=== PATIENT | female | born 1970 | race Two or more races ===

== ENCOUNTER 2019-08-29 00:34 | Emergency (ER) | payer BC ==
[2019-08-29 00:54] VITALS: TEMP 98.1; BMI 25.4
--- NOTE | 2019-08-29 00:57 | PDOC ---
History of Present Illness - History of Present Illness Initial Comments: 08/29/19 01:31 49F with pmh of migraines, presents to the ED with episode of 20min nosebleed from b/l nostrils, worse on the left one. It started when she was at home brushing her teeth, blew her nose under the faucet and the bleeding started.. Unable to control it, until she got to our triage and it got packed. Not on any medication, anticoagulants. Had much milder episodes of nosebleed in the past, rare in frequency. <Vinay Oleary - Last Filed: 08/29/19 02:05> <Rashida Garcia - Last Filed: 08/29/19 02:16> - General Chief Complaint: Nasal Bleeding Stated Complaint: NOSEBLEED Time Seen by Provider: 08/29/19 00:49 Past History - Past Medical History Anemia: No Asthma: No Cancer: No Cardiac Disorders: No COPD: No Diabetes: No HTN: No Seizures: No Thyroid Disease: No - Reproductive History (#): 3 Para: 1 - Psycho Social/Smoking Cessation Hx Smoking Status: No Smoking History: Never smoked Have you smoked in the past 12 months: No Number of Cigarettes Smoked Daily: 0 Hx Alcohol Use: No Drug/Substance Use Hx: No Substance Use Type: None Hx Substance Use Treatment: No <Vinay Oleary - Last Filed: 08/29/19 02:05> <Rashida Garcia - Last Filed: 08/29/19 02:16> - Past Medical History Allergies/Adverse Reactions: Allergies Allergy/AdvReac Type Severity Reaction Status Date / Time No Known Allergies Allergy Verified 08/29/19 00:42 Home Medications: Ambulatory Orders Sodium Chloride Nasal [place] [[place] Nasal [place]] 2 spray NS BID #1 spraybtl 08/29/19 Review of Systems - Review of Systems Able to Perform ROS?: Yes Is the patient limited Tajik proficient: No Constitutional: No: Symptoms Reported HEENTM: Yes: See HPI Respiratory: No: Symptoms reported Cardiac (ROS): No: Symptoms Reported ABD/GI: No: Symptoms Reported : No: Symptoms Reported Musculoskeletal: No: Symptoms Reported Integumentary: No: Symptoms Reported Neurological: No: Symptoms reported All Other Systems: Reviewed and Negative <Vinay Oleary - Last Filed: 08/29/19 02:05> *Physical Exam - Vital Signs Last Vital Signs Temp Pulse Resp BP Pulse Ox 98.1 F 104 H 18 180/91 H 100 08/29/19 00:47 08/29/19 00:47 08/29/19 00:47 08/29/19 00:47 08/29/19 00:47 - Physical Exam General Appearance: Yes: Nourished, Appropriately Dressed. No: Apparent Distress HEENT: positive: EOMI, JOSELITO, Normal ENT Inspection Respiratory/Chest: positive: Lungs Clear, Normal Breath Sounds. negative: Chest Tender, Respiratory Distress Cardiovascular: positive: Regular Rhythm, S1, S2, Tachycardia Gastrointestinal/Abdominal: positive: Normal Bowel Sounds, Flat, Soft. negative : Tender Musculoskeletal: positive: Normal Inspection. negative: CVA Tenderness Extremity: positive: Normal Capillary Refill, Normal Inspection, Normal Range of Motion Integumentary: positive: Normal Color, Dry, Warm Neurologic: positive: Fully Oriented, Alert, Normal Mood/Affect, Normal Response , Motor Strength 5/5 <Vinay Oleary - Last Filed: 08/29/19 02:05> - Vital Signs Last Vital Signs Temp Pulse Resp BP Pulse Ox 98.1 F 104 H 18 180/91 H 100 08/29/19 00:47 08/29/19 00:47 08/29/19 00:47 08/29/19 00:47 08/29/19 00:47 <Rashida Garcia - Last Filed: 08/29/19 02:16> Procedures - Additional Procedures Additional Procedures: other Progress: 08/29/19 02:15 left anterior nare epistaxis no analgesia required, chemical cautery performed. silver nitrate topically to area of bleeding on anterior septum, bleeding controlled, pt tolerated well, no complications. <Rashida Garcia - Last Filed: 08/29/19 02:16> ED Treatment Course - LABORATORY CBC & Chemistry Diagram: 08/29/19 01:21 08/29/19 01:21 <Vinay Oleary - Last Filed: 08/29/19 02:05> - LABORATORY CBC & Chemistry Diagram: 08/29/19 01:21 08/29/19 01:21 - ADDITIONAL ORDERS Additional order review: Laboratory Results 08/29/19 08/29/19 08/29/19 01:21 01:21 01:21 PT with INR 11.10 INR 0.94 PTT (Actin FS) Sodium 141 Potassium 3.5 Chloride 107 Carbon Dioxide 28 Anion Gap 6 L BUN 10.4 Creatinine 0.8 Est GFR (CKD-EPI)AfAm 101.04 Est GFR (CKD-EPI)NonAf 87.18 Random Glucose 130 H Calcium 9.5 Total Bilirubin 0.3 AST 18 ALT 47 Alkaline Phosphatase 101 Total Protein 6.7 Albumin 3.9 Serum , Qual Negative 08/29/19 01:21 PT with INR INR PTT (Actin FS) 34.7 Sodium Potassium Chloride Carbon Dioxide Anion Gap BUN Creatinine Est GFR (CKD-EPI)AfAm Est GFR (CKD-EPI)NonAf Random Glucose Calcium Total Bilirubin AST ALT Alkaline Phosphatase Total Protein Albumin Serum , Qual 08/29/19 01:21 RBC 4.64 MCV 91.3 MCHC 34.7 RDW 13.1 MPV 7.0 L Neutrophils % 56.4 Lymphocytes % 36.3 Monocytes % 5.9 Eosinophils % 0.7 D Basophils % 0.7 - Medications Given in the ED: ED Medications Discontinued Medications Generic Name Dose Route Start Last Admin Trade Name Freq PRN Reason Stop Dose Admin Sodium Chloride 1,000 mls @ 1,000 mls/hr 08/29/19 01:06 08/29/19 01:20 Normal Saline - IV 08/29/19 02:05 1,000 mls/hr ASDIR STA Administration <Rashida Garcia - Last Filed: 08/29/19 02:16> Medical Decision Making - Medical Decision Making 08/29/19 01:37 49F with pmh of migraines presetns with b/l nosebleed episode, now controlled. Patient is tachycardic and hypertensive. Will check platelets and coags, give fluids., 08/29/19 02:05 All labs WNL. Nose pack removed, bleeding controlled. Silver nitrate applicator used to cauterize the visible area of bleeding. ok to dc with follow up with ENT. <Vinay Oleary - Last Filed: 08/29/19 02:05> Discharge - Discharge Information Problems reviewed: Yes - Admission Yes <Vinay Oleary - Last Filed: 08/29/19 02:05> <Rashida Garcia - Last Filed: 11/14/19 02:16> - Discharge Information Clinical Impression/Diagnosis: Anterior epistaxis Disposition: HOME - Additional Discharge Information Prescriptions: Sodium Chloride Nasal [place] [[place]al [place]] 2 spray NS BID #1 spraybtl - Follow up/Referral Referrals: Lucretia Rivera MD [Primary Care Provider] - Mack Ferraro MD [Staff Physician] - - Patient Discharge Instructions Patient Printed Discharge Instructions: DI for Nosebleed Additional Instructions: Follwo up with Dr. Ferraro within the week. Come back for any new, worsening or concerning symptom. - Post Discharge Activity
[2019-08-29] MEDS ORDERED: SODIUM CHLORIDE 1,000 ML IV STA (01:06)
[2019-08-29 01:34] LABS: BASO % 0.7 % (0-2.0); EOS % 0.7 % (0-4.5); HEMATOCRIT 42.4 % (32.4-45.2); HEMOGLOBIN 14.7 GM/dL (10.7-15.3); LYMPH % 36.3 % (8-40); MCH 31.7 pg (25.7-33.7); MCHC 34.7 g/dl (32.0-36.0); MEAN CELL VOLUME 91.3 fl (80-96); MONO % 5.9 % (3.8-10.2); NEUT % 56.4 % (42.8-82.8); PLATELET COUNT 300 K/MM3 (134-434); RBC 4.64 M/mm3 (3.60-5.2); RDW 13.1 % (11.6-15.6); WHITE BLOOD COUNT 9.1 K/mm3 (4.0-10.0)
[2019-08-29 01:45] LABS: INR 0.94 (0.83-1.09); PROTHROMBIN TIME (PATIENT) 11.1 SEC (9.7-13.0)
[2019-08-29 01:53] LABS: ALBUMIN 3.9 g/dl (3.4-5.0); BILIRUBIN,TOTAL 0.3 mg/dL (0.2-1); BLOOD UREA NITROGEN 10.4 mg/dL (7-18); CALCIUM 9.5 mg/dL (8.5-10.1); CREATININE 0.8 mg/dL (0.55-1.3); POTASSIUM 3.5 mmol/L (3.5-5.1); TOT PROT 6.7 g/dl (6.4-8.2)
[2019-08-29] MEDS ORDERED: SILVER NITRATE 75% APPLIC STCK 1 PKT EACH ONE (02:03)
--- NOTE | 2019-08-29 02:12 | PDOC ---
*Physical Exam - Vital Signs Last Vital Signs Temp Pulse Resp BP Pulse Ox 98.1 F 104 H 18 180/91 H 100 08/29/19 00:47 08/29/19 00:47 08/29/19 00:47 08/29/19 00:47 08/29/19 00:47 ED Treatment Course - LABORATORY CBC & Chemistry Diagram: 08/29/19 01:21 08/29/19 01:21 - ADDITIONAL ORDERS Additional order review: Laboratory Results 08/29/19 08/29/19 08/29/19 01:21 01:21 01:21 PT with INR 11.10 INR 0.94 PTT (Actin FS) Sodium 141 Potassium 3.5 Chloride 107 Carbon Dioxide 28 Anion Gap 6 L BUN 10.4 Creatinine 0.8 Est GFR (CKD-EPI)AfAm 101.04 Est GFR (CKD-EPI)NonAf 87.18 Random Glucose 130 H Calcium 9.5 Total Bilirubin 0.3 AST 18 ALT 47 Alkaline Phosphatase 101 Total Protein 6.7 Albumin 3.9 Serum , Qual Negative 08/29/19 01:21 PT with INR INR PTT (Actin FS) 34.7 Sodium Potassium Chloride Carbon Dioxide Anion Gap BUN Creatinine Est GFR (CKD-EPI)AfAm Est GFR (CKD-EPI)NonAf Random Glucose Calcium Total Bilirubin AST ALT Alkaline Phosphatase Total Protein Albumin Serum , Qual 08/29/19 01:21 RBC 4.64 MCV 91.3 MCHC 34.7 RDW 13.1 MPV 7.0 L Neutrophils % 56.4 Lymphocytes % 36.3 Monocytes % 5.9 Eosinophils % 0.7 D Basophils % 0.7 - Medications Given in the ED: ED Medications Discontinued Medications Generic Name Dose Route Start Last Admin Trade Name Freq PRN Reason Stop Dose Admin Sodium Chloride 1,000 mls @ 1,000 mls/hr 08/29/19 01:06 08/29/19 01:20 Normal Saline - IV 08/29/19 02:05 1,000 mls/hr ASDIR STA Administration Discharge - Discharge Information Problems reviewed: Yes Clinical Impression/Diagnosis: Anterior epistaxis Disposition: HOME - Admission No - Additional Discharge Information Prescriptions: Sodium Chloride Nasal [place] [[place] Nasal [place]] 2 spray NS BID #1 spraybtl - Follow up/Referral Referrals: Lucretia Rivera MD [Primary Care Provider] - Mack Ferraro MD [Staff Physician] - - Patient Discharge Instructions Patient Printed Discharge Instructions: DI for Nosebleed Additional Instructions: Follwo up with Dr. Ferraro within the week. Come back for any new, worsening or concerning symptom. - Post Discharge Activity
--- NOTE | 2019-08-29 02:14 | PDOC ---
Attending Attestation - Resident Resident Name: AnirudhVinay - ED Attending Attestation I have performed the following: I have examined & evaluated the patient, The case was reviewed & discussed with the resident, I agree w/resident's findings & plan - HPI HPI: 08/29/19 02:11 49F with pmh of migraines, presents to the ED with episode of 20min nosebleed from b/l nostrils, worse on the left nare. It started when she was at home brushing her teeth, blew her nose under the faucet and the bleeding started.. Unable to control it, until she got to our triage and it got packed. Not on any medication, anticoagulants. Had much milder episodes of nosebleed in the past, rare in frequency. - Physicial Exam PE: 08/29/19 02:11 Vital Signs Temp Pulse Resp BP Pulse Ox 98.1 F 104 H 18 180/91 H 100 08/29/19 00:47 08/29/19 00:47 08/29/19 00:47 08/29/19 00:47 08/29/19 00:47 Agree with the resident's HPI and PE as documented in the electronic medical record. NAD, well appearing, EOMI, PERRL, nl conjunctiva, anicteric; left anterior septum with small abrasion, no active bleeding, no polyps. phonation normal. oropharynx clear. neck supple. lungs clear, no respiratory distress. RRR, abdomen soft nontender. Back nontender. BROWN x4, no focal neuro deficits. No peripheral edema. normal color for ethnicity, WWP. - Medical Decision Making 08/29/19 02:12 Vital Signs Temp Pulse Resp BP Pulse Ox 98.1 F 104 H 18 180/91 H 100 08/29/19 00:47 08/29/19 00:47 08/29/19 00:47 08/29/19 00:47 08/29/19 00:47 Initial vital signs noted for hypertension tachycardia, nontoxic-appearing, maintaining saturation no respiratory distress. Nose was packed from triage with gauze subsequently removed. Left anterior epistaxis is noted along anterior nasal septum, area cauterized with topical silver nitrate without complications. See resident procedure note for the procedure. No complications , bleeding ceased, hemodynamically appropriate on recheck, labs normal including H/H. normal coags and lytes. Pt to be discharged in stable condition. Patient and family made aware of clinical impression, treatment recommendations and disposition plan, return precautions discussed (including but not limited to new or persistent/worsening symptoms, pain, fevers, or signs of infection, chest pain, respiratory distress , inability to tolerate oral intake, dehydration, syncope, or neurologic changes ). Follow up with PMD and/or ENT specialist as recommended, follow up information provided, take medications as instructed for duration of time. continue with supportive care, avoid triggers and precipitants. All questions answered to patient's satisfaction and expressed understanding and comfort with this. At the time of discharge, the patient is alert, clinically improved, tolerating po and verbalizes understanding of instructions, satisfied with the care received and felt comfortable with the plan. Patient does not suffer from an acute life-threatening medical condition at this time and is safe for outpatient follow-up
[2019-08-29 02:17] VITALS: BP 148/90; PULSE 90
== END 2019-08-29 02:22 | disposition home or self-care (01) ==
LOC: JER 00:34
PROC: 093K7ZZ Control Bleeding in Nasal Mucosa and Soft Tissue, Via Natural or Artificial Opening (ICD-10-PCS; principal; 2019-08-29)
PROC: 3E0337Z Introduction of Electrolytic and Water Balance Substance into Peripheral Vein, Percutaneous Approach (ICD-10-PCS; 2019-08-29)
DX: R04.0 Epistaxis (principal); I10 Essential (primary) hypertension
CPT/HCPCS: 36415; 80053; 84703; 85025; 85610; 85730; 86850; 86900; 86901; 99283-25; J7030

== ENCOUNTER 2022-11-09 04:28 | Day surgery (SDC) | payer OTHER ==
[2022-11-08 12:22] VITALS: BMI 25.7
[~2022-11-09 04:28] MED LIST: ACETAMINOPHEN 325 MG TABLET (FP) PO PRN
[2022-11-09] MEDS ORDERED: POVIDONE-IODINE 5% OPHTHALMIC PREP 30 ML SOLUTION ONE (07:18)
[2022-11-09] MEDS ORDERED: TETRACAINE 0.5% OPHTH SOLN 2 ML BOTTLE ONE (07:18)
[2022-11-09] MEDS ORDERED: LIDOCAINE HCL/PF 1% SDV 5ML VIAL ONE (07:18)
[2022-11-09] MEDS ORDERED: KETOROLAC TROMETHAMINE 0.5% EYE DROP 1 DROP DROPS ONE (07:19)
[2022-11-09] MEDS ORDERED: CYCLOPENTOLATE HCL 1% OPHTH SOLN 2 ML BOTTLE ONE (07:19)
[2022-11-09] MEDS ORDERED: PHENYLEPHRINE 2.5% OPTHALMIC DROP 2ML BOTTLE ONE (07:19)
[2022-11-09] MEDS ORDERED: OFLOXACIN 0.3% OPHTHALMIC SOLUTION 5 ML BOTTLE ONE (07:19)
[2022-11-09] MEDS ORDERED: TROPICAMIDE 1% OPHTH SOLN 15 ML BOTTLE ONE (07:19)
[2022-11-09] MEDS: OFLOXACIN 0.3% OPHTHALMIC SOLUTION 5 ML BOTTLE OP SCH ×3 (07:20→07:31)
[2022-11-09] MEDS: KETOROLAC TROMETHAMINE 0.5% EYE DROP 1 DROP DROPS OP SCH ×3 (07:20→07:31)
[2022-11-09] MEDS: TROPICAMIDE 1% OPHTH SOLN 15 ML BOTTLE OP SCH ×3 (07:20→07:30)
[2022-11-09] MEDS: CYCLOPENTOLATE HCL 1% OPHTH SOLN 2 ML BOTTLE OP SCH ×3 (07:20→07:32)
[2022-11-09] MEDS: PHENYLEPHRINE 2.5% OPHTH SOLN 15 ML BOTTLE OP SCH ×3 (07:20→07:31)
[2022-11-09] MEDS ORDERED: MIDAZOLAM HCL 2 MG/2 ML SINGLE DOSE VIAL ONE (09:00)
[2022-11-09] MEDS ORDERED: TETRACAINE 0.5% OPHTH SOLN 2 ML BOTTLE OS ONE (09:03)
[2022-11-09] MEDS ORDERED: POVIDONE-IODINE 5% OPHTHALMIC PREP 30 ML SOLUTION OS ONE (09:04)
[2022-11-09] MEDS ORDERED: BSS (NA/CA/MG/K) BALANCED SALT SOLUTION OPHTH SOLN 15 ML BOTTLE IO ONE (09:11)
[2022-11-09] MEDS ORDERED: LIDOCAINE HCL 1% PRESERVATIVE FREE - 30ML VIAL IO ONE (09:12)
[2022-11-09] MEDS ORDERED: CHONDROITIN SU A/HYALUR SOD 1 KIT IO ONE (09:13)
[2022-11-09] MEDS ORDERED: EPINEPHrine/PF 1 MG/1 ML (1:1,000) AMPULE SQ ONE (09:18)
[2022-11-09 10:24] VITALS: RESP 18
[2022-11-09 10:58] VITALS: BP 106/65; PULSE 68; TEMP 97.8
== END 2022-11-09 11:08 | disposition home or self-care (01) ==
LOC: JASU-SURG 04:28
PROVIDERS: ATTEND Ophthalmology
PROC: 08RK3JZ Replacement of Left Lens with Synthetic Substitute, Percutaneous Approach (ICD-10-PCS; principal; 2022-11-09 09:00)
DX: H26.9 Unspecified cataract (principal); H52.202 Unspecified astigmatism, left eye
CPT/HCPCS: 66984; V2632; 81025

== ENCOUNTER 2022-11-23 04:19 | Day surgery (SDC) | payer OTHER ==
[2022-11-18 15:23] VITALS: BMI 25.7
[~2022-11-23 04:19] MED LIST changes: +CYCLOPENTOLATE HCL 1% OPHTH SOLN 2 ML BOTTLE OP SCH; +KETOROLAC TROMETHAMINE 0.5% EYE DROP 1 DROP DROPS OP SCH; +OFLOXACIN 0.3% OPHTHALMIC SOLUTION 5 ML BOTTLE OP SCH; +PHENYLEPHRINE 2.5% OPHTH SOLN 15 ML BOTTLE OP SCH; +TROPICAMIDE 1% OPHTH SOLN 15 ML BOTTLE OP SCH
[2022-11-23] MEDS ORDERED: TETRACAINE 0.5% OPHTH SOLN 2 ML BOTTLE ONE (07:32)
[2022-11-23] MEDS ORDERED: POVIDONE-IODINE 5% OPHTHALMIC PREP 30 ML SOLUTION ONE (07:32)
[2022-11-23] MEDS ORDERED: LIDOCAINE HCL/PF 1% SDV 5ML VIAL ONE (07:32)
[2022-11-23] MEDS ORDERED: CYCLOPENTOLATE HCL 1% OPHTH SOLN 2 ML BOTTLE ONE (10:11)
[2022-11-23] MEDS ORDERED: OFLOXACIN 0.3% OPHTHALMIC SOLUTION 5 ML BOTTLE ONE (10:11)
[2022-11-23] MEDS ORDERED: TROPICAMIDE 1% OPHTH SOLN 15 ML BOTTLE ONE (10:11)
[2022-11-23] MEDS ORDERED: KETOROLAC TROMETHAMINE 0.5% EYE DROP 1 DROP DROPS ONE (10:11)
[2022-11-23] MEDS ORDERED: KETOROLAC TROMETHAMINE 0.5% EYE DROP 1 DROP DROPS OD ONE ×3 (10:25→10:35)
[2022-11-23] MEDS ORDERED: PHENYLEPHRINE 2.5% OPHTH SOLN 15 ML BOTTLE OD ONE ×4 (10:25→10:35)
[2022-11-23] MEDS ORDERED: TROPICAMIDE 0.5% OPHTHALMIC SOLN 15 ML BOTTLE OD ONE ×2 (10:25→10:30)
[2022-11-23] MEDS ORDERED: CYCLOPENTOLATE HCL 1% OPHTH SOLN 2 ML BOTTLE OD ONE ×3 (10:25→10:35)
[2022-11-23] MEDS ORDERED: OFLOXACIN 0.3% OPHTHALMIC SOLUTION 5 ML BOTTLE OD ONE ×3 (10:25→10:35)
[2022-11-23 10:30] VITALS: RESP 18
[2022-11-23] MEDS ORDERED: MIDAZOLAM HCL 2 MG/2 ML SINGLE DOSE VIAL ONE (11:58)
[2022-11-23] MEDS ORDERED: TETRACAINE 0.5% OPHTH SOLN 2 ML BOTTLE OD ONE (12:03)
[2022-11-23] MEDS ORDERED: POVIDONE-IODINE 5% OPHTHALMIC PREP 30 ML SOLUTION OD ONE (12:05)
[2022-11-23] MEDS ORDERED: BSS (NA/CA/MG/K) BALANCED SALT SOLUTION OPHTH SOLN 15 ML BOTTLE OD ONE (12:08)
[2022-11-23] MEDS ORDERED: LIDOCAINE HCL 1% PRESERVATIVE FREE - 30ML VIAL IO ONE (12:09)
[2022-11-23] MEDS ORDERED: CHONDROITIN SU A/HYALUR SOD 1 KIT IO ONE (12:10)
[2022-11-23] MEDS ORDERED: EPINEPHrine/PF 1 MG/1 ML (1:1,000) AMPULE SQ ONE (12:20)
[2022-11-23] MEDS ORDERED: ACETAMINOPHEN 325 MG TABLET (FP) ONE (12:48)
[2022-11-23 13:55] VITALS: BP 118/70; PULSE 66; TEMP 97.8
== END 2022-11-23 13:23 | disposition home or self-care (01) ==
LOC: JASU-SURG 04:19
PROVIDERS: ATTEND Ophthalmology
PROC: 08RJ3JZ Replacement of Right Lens with Synthetic Substitute, Percutaneous Approach (ICD-10-PCS; principal; 2022-11-23 12:00)
DX: H26.9 Unspecified cataract (principal); H52.201 Unspecified astigmatism, right eye
CPT/HCPCS: 81025